=== PATIENT | female | born 1990 | race Caucasian/White ===

== ENCOUNTER 2016-11-16 06:10 | Emergency (ER) | payer OTHER ==
--- NOTE | 2016-11-16 06:49 | ED CLINICAL REPORT ---
Clinical Report - Physicians/Mid Levels [facility] [address] [place] [address] 11/16/2016 6:13 [id number] Time Seen: 06:34; initial patient contact. Arrived- By private vehicle. Historian- patient. HISTORY OF PRESENT ILLNESS Chief Complaint: Injury to the right wrist. The injury happened about 1 week ago. Occurred at home. (swinging a hammer. Did not strike the wrist.). Patient is experiencing moderate pain. Patient denies injury to the head or neck. REVIEW OF SYSTEMS No swelling, tingling, numbness, weakness or skin laceration. She has had joint pain. PAST HISTORY Abdominal Pain. Gastritis. Peptic Ulcer Disease. ADDITIONAL SURGERIES: Oophorectomy. Tonsillectomy. The patient's dominant hand is the left. SOCIAL HISTORY Never smoker. Occasional alcohol use. ADDITIONAL NOTES The nursing notes have been reviewed with agreement regarding the chief complaint, PMH and patient medications and allergies. PHYSICAL EXAM Vital Signs: 11/16/2016 06:16 BP: 134/80. HR: 106. RR: 16. O2 saturation: 96%. Temp: 99.1 F. Have been reviewed. Blood pressure normal. Tachycardic. Respiratory rate normal. Temperature normal. Oxygen saturation normal. Appearance: Alert. Oriented X3. No acute distress. Skin: Skin warm and dry. Skin intact. Extremities: Left wrist: moderate tenderness located in the ulnar aspect of the wrist. Limited ROM secondary to pain (diminished extension and radial deviation). Neurovascular intact distally. No erythema, swelling, laceration, ecchymosis or deformity. No decreased flexion. Extremities otherwise negative. Neuro, Vascular and Tendons: Vascular status intact. Sensation intact. Motor intact. Tendon function intact. Neuro: Oriented X 3. No motor deficit. No sensory deficit. PROGRESS AND PROCEDURES Disposition: Discharged home in good and improved condition. Condition: good. CLINICAL IMPRESSION Sprain of the right radiocarpal joint. INSTRUCTIONS Apply ice for 20 minutes followed by heat 20 minutes. Don't apply ice directly to skin. Wear cock-up splint until released. Limit use of your right hand until released. Do not work today. Your Current Medications: CONTINUE TAKING THE FOLLOWING MEDICATIONS: Zoloft*. Prescription Medications: Diclofenac 50 mg tablets: take 1 tablet orally every 6 hours as needed for pain or stiffness. Dispense thirty (30). No refill. Follow-up: Screening today revealed the patient's blood pressure to be in the pre-hypertensive range. Follow-up with: [facility], , [address], , [place], [id number] Follow up in about two days. Call for an appointment. (Electronically signed by Raymond Scott Dr. 11/16/2016 6:52)
--- NOTE | 2016-11-16 06:49 | ED CLINICAL REPORT ---
Clinical Report - Physicians/Mid Levels [facility] [address] [place] [address] 11/16/2016 6:13 [id number] Time Seen: 06:34; initial patient contact. Arrived- By private vehicle. Historian- patient. HISTORY OF PRESENT ILLNESS Chief Complaint: Injury to the right wrist. The injury happened about 1 week ago. Occurred at home. (swinging a hammer. Did not strike the wrist.). Patient is experiencing moderate pain. Patient denies injury to the head or neck. REVIEW OF SYSTEMS No swelling, tingling, numbness, weakness or skin laceration. She has had joint pain. PAST HISTORY Abdominal Pain. Gastritis. Peptic Ulcer Disease. ADDITIONAL SURGERIES: Oophorectomy. Tonsillectomy. The patient's dominant hand is the left. SOCIAL HISTORY Never smoker. Occasional alcohol use. ADDITIONAL NOTES The nursing notes have been reviewed with agreement regarding the chief complaint, PMH and patient medications and allergies. PHYSICAL EXAM Vital Signs: 11/16/2016 06:16 BP: 134/80. HR: 106. RR: 16. O2 saturation: 96%. Temp: 99.1 F. Have been reviewed. Blood pressure normal. Tachycardic. Respiratory rate normal. Temperature normal. Oxygen saturation normal. Appearance: Alert. Oriented X3. No acute distress. Skin: Skin warm and dry. Skin intact. Extremities: Left wrist: moderate tenderness located in the ulnar aspect of the wrist. Limited ROM secondary to pain (diminished extension and radial deviation). Neurovascular intact distally. No erythema, swelling, laceration, ecchymosis or deformity. No decreased flexion. Extremities otherwise negative. Neuro, Vascular and Tendons: Vascular status intact. Sensation intact. Motor intact. Tendon function intact. Neuro: Oriented X 3. No motor deficit. No sensory deficit. PROGRESS AND PROCEDURES Disposition: Discharged home in good and improved condition. Condition: good. CLINICAL IMPRESSION Sprain of the right radiocarpal joint. INSTRUCTIONS Apply ice for 20 minutes followed by heat 20 minutes. Don't apply ice directly to skin. Wear cock-up splint until released. Limit use of your right hand until released. Do not work today. Your Current Medications: CONTINUE TAKING THE FOLLOWING MEDICATIONS: Zoloft*. Prescription Medications: Diclofenac 50 mg tablets: take 1 tablet orally every 6 hours as needed for pain or stiffness. Dispense thirty (30). No refill. Follow-up: Screening today revealed the patient's blood pressure to be in the pre-hypertensive range. [facility] with: [facility], , [address], , [place], [id number] Follow up in about two days. Call for an appointment. (Electronically signed by Raymond Scott Dr. 11/16/2016 6:52)
--- NOTE | 2016-11-16 06:50 | ED ORDER SUMMARY ---
..... Patient: PETE MORRISON R OrderSheet [facility] VisitID: [id number] [address] [place] [address] 26y, F Registration Date/Time: 11/16/2016 ORDER SHEET Weight: 48.9 kg Allergies: Penicillins GENERAL ORDERS: Splint (UE) (Right) (Cock-up) (06:49 11/16/2016 Cheryl Gipson) (Ack 6:49 IJurca ER Tech1) (7:01 EIndtameka R.N.) Ice (06:57 11/16/2016 Moises R.Matt per protocol) (6:57 Moises R.N.) MEDICATION ORDERS: Toradol IM 60 mg (NOW) (06:43 11/16/2016 Cheryl Gipson) (6:47 Betsey R.N.) IV FLUIDS: ORDER SHEET NOTES: [Electronically signed by Raymond Scott Dr. (06:52 11/16/2016)] [Electronically signed by Katy López R.N. (07:03 11/16/2016)] [Electronically locked/signed by Katy López R.N. (07:03 11/16/2016)]
--- NOTE | 2016-11-16 06:50 | ED NURSING NOTES ---
Clinical Report - Nurses [facility] [address] [place] [address] 11/16/2016 6:13 [id number] TRI[facility] Triage time 06:Nov 16 2016. Acuity: LEVEL 4. Chief Complaint: SPORTS INJURY. 06:16 11/16/16. SEPSIS SCREEN: Sepsis Screen. Negative (no infection suspected/documented). ISABELA COMA SCORE: Isabela Coma Scale: 15- eyes open spontaneously (4); best verbal response- oriented x 4 (5); best motor response- obeys commands (6). --06:23 Katy óLpez R.N. 06:16 11/16/16. BP: 134/80. HR: 106. RR: 16. O2 saturation: 96%. Temp: 99.1 F. Pain level now 10. --06:23 Katy López R.N. Weight: 48.9 kg. Height/Length: 61 inches. BMI: 20.4. --06:15 Katy López R.N. Medications Zoloft. --06:19 Katy López R.N. Allergies Penicillins. --06:19 Katy López R.N. Medication/allergy information source: the patient. --06:23 Katy López R.N. History Arrived by private vehicle. Historian: patient. Unaccompanied. Location of injuries: right wrist. This occurred last night. ( sprained r wrist 1 month ago, reinjured it last night when she was hammering a nail while making furniture). 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 PAST MEDICAL HX: Last normal menstrual period was 3 weeks ago- weeks ago. SOCIAL HX: Never smoker. Occasional alcohol use. No drug use. No infectious disease exposure. ABUSE ASSESSMENT: No report of abuse. SELF HARM ASSESSMENT: A self harm assessment was performed. The patient answered "no" to the question "Have you recently felt down, depressed, or hopeless?", "Have you noticed less interest or pleasure in doing things?", "Do you have thoughts of harming or killing yourself?", "Are you here because you tried to hurt yourself?", "Have you ever tried to hurt yourself before today?", "Have you recently had thoughts about harming or killing others?" and "Do you have any dangerous items in your possession?". NUTRITIONAL RISK ASSESSMENT: The nutritional risk assessment revealed no deficiencies. FUNCTIONAL ASSESSMENT: Functional assessment: no impairments noted. LEARNING NEEDS ASSESSMENT: The learning needs assessment revealed no barriers. SKIN INTEGRITY ASSESSMENT: Skin integrity risk assessment completed. No skin integrity risk identified. --06:23 Katy López R.N. PROBLEMS: Abdominal Pain. Gastritis. Peptic Ulcer Disease. --06:20 Katy López R.N. ADDITIONAL SURGERIES: Oophorectomy. Tonsillectomy. --06:20 Katy López R.N. Interventions ID band on patient. --06:23 Katy López R.N. PHYSICAL ASSESSMENT 06:25 11/16/16. GENERAL / NEURO / PSYCH: Alert. Oriented X 4. HEENT: Pupils equal, round and reactive to light. RESPIRATORY: Respirations not labored. Breath sounds within normal limits. EXTREMITIES: Right forearm: tenderness of the distal ulnar aspect of forearm. Right wrist: tenderness located in the dorsal aspect of the wrist. Limited ROM secondary to pain (diminished extension). SKIN: Skin is warm and dry. --06:25 Katy López R.N. NURSING PROGRESS NOTES 06:25 11/16/16. Cold pack applied. Two patient identifiers checked. Call light placed in reach. Side rails up x 1. Bed placed in lowest position. Brakes of bed on. Patient ready for evaluation. --06:25 Katy López R.N. 06:45 11/16/2016 Toradol (Ketorolac Tromethamine) IM 60 mg given. Given in the left gluteus niharika. Allergies verified and confirmed 5 rights. --06:47 Katy López R.N. 06:30. Cold pack applied to the right wrist. --06:58 Veto Maynard R.N. 07:00 11/16/16. 2 inch evangelista bandage applied to right wrist by nurse; distal pulses intact, sensation intact and motor function within normal limits. ( Evangelista wrap utilitzed as smallest velcro wrist splint too large. MD informed). --07:01 Katy López R.N. DISPOSITION / DISCHARGE 07:03 11/16/16. Departure time: 07:Nov 16 2016. Condition at departure: improved and stable. The goals identified in the patient's plan of care were met. No learning barriers present. Reviewed medication(s) side effects, precautions, dosing and course information. Prescription(s) given to the patient. Patient verbalized understanding. Written instructions provided in Eritrean. The patient was discharged home and unaccompanied at time of discharge. She left the Emergency Department ambulatory and via private vehicle. Patient driving. --07:03 Katy López R.N. 06:16 11/16/16. BP: 134/80. HR: 106. RR: 16. O2 saturation: 96%. Temp: 99.1 F. Pain level now 10. --07:03 Katy López R.N. Locked/Released at 11/16/2016 7:03 by Katy López R.N.
--- NOTE | 2016-11-16 06:50 | ED NURSING NOTES ---
Clinical Report - Nurses [facility] [address] [place] [address] 11/16/2016 6:13 [id number] TRI[facility] Triage time 06:Nov 16 2016. Acuity: LEVEL 4. Chief Complaint: SPORTS INJURY. 06:16 11/16/16. SEPSIS SCREEN: Sepsis Screen. Negative (no infection suspected/documented). ISABELA COMA SCORE: Isabela Coma Scale: 15- eyes open spontaneously (4); best verbal response- oriented x 4 (5); best motor response- obeys commands (6). --06:23 Katy López R.N. 06:16 11/16/16. BP: 134/80. HR: 106. RR: 16. O2 saturation: 96%. Temp: 99.1 F. Pain level now 10. --06:23 Katy López R.N. Weight: 48.9 kg. Height/Length: 61 inches. BMI: 20.4. --06:15 Katy López R.N. Medications Zoloft. --06:19 Katy López R.N. Allergies Penicillins. --06:19 Katy López R.N. Medication/allergy information source: the patient. --06:23 Katy López R.N. History Arrived by private vehicle. Historian: patient. Unaccompanied. Location of injuries: right wrist. This occurred last night. ( sprained r wrist 1 month ago, reinjured it last night when she was hammering a nail while making furniture). 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 PAST MEDICAL HX: Last normal menstrual period was 3 weeks ago- weeks ago. SOCIAL HX: Never smoker. Occasional alcohol use. No drug use. No infectious disease exposure. ABUSE ASSESSMENT: No report of abuse. SELF HARM ASSESSMENT: A self harm assessment was performed. The patient answered "no" to the question "Have you recently felt down, depressed, or hopeless?", "Have you noticed less interest or pleasure in doing things?", "Do you have thoughts of harming or killing yourself?", "Are you here because you tried to hurt yourself?", "Have you ever tried to hurt yourself before today?", "Have you recently had thoughts about harming or killing others?" and "Do you have any dangerous items in your possession?". NUTRITIONAL RISK ASSESSMENT: The nutritional risk assessment revealed no deficiencies. FUNCTIONAL ASSESSMENT: Functional assessment: no impairments noted. LEARNING NEEDS ASSESSMENT: The learning needs assessment revealed no barriers. SKIN INTEGRITY ASSESSMENT: Skin integrity risk assessment completed. No skin integrity risk identified. --06:23 Katy López R.N. PROBLEMS: Abdominal Pain. Gastritis. Peptic Ulcer Disease. --06:20 Katy López R.N. ADDITIONAL SURGERIES: Oophorectomy. Tonsillectomy. --06:20 Katy López R.N. Interventions ID band on patient. --06:23 Katy López R.N. PHYSICAL ASSESSMENT 06:25 11/16/16. GENERAL / NEURO / PSYCH: Alert. Oriented X 4. HEENT: Pupils equal, round and reactive to light. RESPIRATORY: Respirations not labored. Breath sounds within normal limits. EXTREMITIES: Right forearm: tenderness of the distal ulnar aspect of forearm. Right wrist: tenderness located in the dorsal aspect of the wrist. Limited ROM secondary to pain (diminished extension). SKIN: Skin is warm and dry. --06:25 Katy López R.N. NURSING PROGRESS NOTES 06:25 11/16/16. Cold pack applied. Two patient identifiers checked. Call light placed in reach. Side rails up x 1. Bed placed in lowest position. Brakes of bed on. Patient ready for evaluation. --06:25 Katy López R.N. 06:45 11/16/2016 Toradol (Ketorolac Tromethamine) IM 60 mg given. Given in the left gluteus niharika. Allergies verified and confirmed 5 rights. --06:47 Katy óLpez R.N. 06:30. Cold pack applied to the right wrist. --06:58 Veto Maynard R.N. 07:00 11/16/16. 2 inch evangelista bandage applied to right wrist by nurse; distal pulses intact, sensation intact and motor function within normal limits. ( Evangelista wrap utilitzed as smallest velcro wrist splint too large. MD informed). --07:01 Katy López R.N. DISPOSITION / DISCHARGE 07:03 11/16/16. Departure time: 07:Nov 16 2016. Condition at departure: improved and stable. The goals identified in the patient's plan of care were met. No learning barriers present. Reviewed medication(s) side effects, precautions, dosing and course information. Prescription(s) given to the patient. Patient verbalized understanding. Written instructions provided in Guyanese. The patient was discharged home and unaccompanied at time of discharge. She left the Emergency Department ambulatory and via private vehicle. Patient driving. --07:03 Katy López R.N. 06:16 11/16/16. BP: 134/80. HR: 106. RR: 16. O2 saturation: 96%. Temp: 99.1 F. Pain level now 10. --07:03 Katy López R.N. Locked/Released at 11/16/2016 7:03 by Katy López R.N.
--- NOTE | 2016-11-16 06:50 | ED ORDER SUMMARY ---
..... Patient: PETE MORRISON R OrderSheet [facility] VisitID: [id number] [address] [place] [address] 26y, F Registration Date/Time: 11/16/2016 ORDER SHEET Weight: 48.9 kg Allergies: Penicillins GENERAL ORDERS: Splint (UE) (Right) (Cock-up) (06:49 11/16/2016 Cheryl Gipson) (Ack 6:49 IJurca ER Tech1) (7:01 EIndtameka R.N.) Ice (06:57 11/16/2016 Moises R.Matt per protocol) (6:57 Moises R.N.) MEDICATION ORDERS: Toradol IM 60 mg (NOW) (06:43 11/16/2016 Cheryl Gipson) (6:47 Betsey R.N.) IV FLUIDS: ORDER SHEET NOTES: [Electronically signed by Raymond Scott Dr. (06:52 11/16/2016)] [Electronically signed by Katy López R.N. (07:03 11/16/2016)] [Electronically locked/signed by Katy López R.N. (07:03 11/16/2016)]
--- NOTE | 2016-11-16 07:03 | ED DISCHARGE INSTRUCTIONS ---
Patient: PETE MORRISON General Instructions [facility] VisitID: [id number] [address] [place] [place] [address] 26y, F Registration Date/Time: 11/16/2016 Sprain of the right radiocarpal joint. INSTRUCTIONS Apply ice for 20 minutes followed by heat 20 minutes. Don't apply ice directly to skin. Wear cock-up splint until released. Limit use of your right hand until released. Do not work today. Your Current Medications: CONTINUE TAKING THE FOLLOWING MEDICATIONS: Zoloft*. Prescription Medications: Diclofenac 50 mg tablets: take 1 tablet orally every 6 hours as needed for pain or stiffness. Dispense thirty (30). No refill. Follow-up: Screening today revealed the patient's blood pressure to be in the pre-hypertensive range. Follow[facility] with: [facility], , [address], [place], [phone] Follow up in about two days. Call for an appointment. ADDITIONAL INFORMATION Sprain, Wrist A sprain is an injury to the ligaments or capsule that holds a joint together. There are no broken bones. Most sprains take about three to six weeks to heal. If the ligament is completely torn (severe sprain), it can take months to recover. Most wrist sprains are treated with a splint, wrist brace or elastic wrap for support. Severe sprains may require surgery. Home care The following guidelines will help you care for your injury at home: 1) Keep your arm elevated to reduce pain and swelling. This is very important during the first 48 hours. 2) Apply an ice pack (ice cubes in a plastic bag, wrapped in a towel) over the injured area for 20 minutes every 12 hours the first day. Continue with ice packs 34 times a day for the next two days, then as needed for the relief of pain and swelling. 3) You may use acetaminophen or ibuprofen to control pain, unless another pain medicine was prescribed.If you have chronic liver or kidney disease or ever had a stomach ulcer or GI bleeding, talk with your doctor before using these medicines. 4) If you were given a splint or brace, wear it for the time advised by your doctor. Follow-up care Follow up with your doctor as advised. Any X-rays you had today dont show any broken bones, breaks, or fractures. Sometimes fractures dont show up on the first X-ray. Bruises and sprains can sometimes hurt as much as a fracture. These injuries can take time to heal completely. If your symptoms dont improve or they get worse, talk with your doctor. You may need a repeat X-ray. When to seek medical care Get prompt medical attention if any of the following occur: Pain or swelling increases Fingers or hand becomes cold, blue, numb, or tingly Wrist Splint: Velcro A splint is designed to prevent movement of the bones, muscles and tendons of the wrist. Velcro wrist splints are used because of their comfort and convenience. In certain conditions, the splint can be removed when bathing or changing clothes. The condition you are being treated for will determine how long you should wear the splint and if it is safe to remove your splint before your next visit. If you are unsure, ask your nurse or doctor. Get Prompt Medical Attention if any of the following occur: -- Increased pain or swelling under the splint or in the hand or fingers -- Fingers or hand becomes cold, blue, numb or tingly You have been given the following additional information: Wrist Sprain Wrist Splint, Velcro Limit use of your right hand until released. Do not work today. (Electronically signed by Raymond Scott Dr. 11/16/2016 6:52)
--- NOTE | 2016-11-16 07:03 | ED MED RECONCILIATION SUMMARY ---
Patient: PETE MORRISON Medication Reconciliation Report [facility] VisitID: [id number] [address] [place] [address] 26y, F Registration Date/Time: 11/16/2016 Weight: 48.9 kg Height/Length: 61 in. BMI: 20.4 ALLERGIES: Penicillins The patient's Home Medications are listed below: CONTINUE TAKING THE FOLLOWING MEDICATIONS: Zoloft The source(s) of the original Home Medication information: patient The following Medications were given to the patient in the Emergency Department: Toradol [IM] IM 60 mg, administered: 11/16/2016 6:45:00 AM The following Medications were prescribed to the patient: Diclofenac 50 mg tablets: take 1 tablet orally every 6 hours as needed for pain or stiffness. Dispense thirty (30). No refill. -- Raymond Scott Dr.
--- NOTE | 2016-11-16 07:03 | ED DISCHARGE INSTRUCTIONS ---
Patient: PETE MORRISON General Instructions [facility] VisitID: [id number] [address] [place] [place] [address] 26y, F Registration Date/Time: 11/16/2016 Sprain of the right radiocarpal joint. INSTRUCTIONS Apply ice for 20 minutes followed by heat 20 minutes. Don't apply ice directly to skin. Wear cock-up splint until released. Limit use of your right hand until released. Do not work today. Your Current Medications: CONTINUE TAKING THE FOLLOWING MEDICATIONS: Zoloft*. Prescription Medications: Diclofenac 50 mg tablets: take 1 tablet orally every 6 hours as needed for pain or stiffness. Dispense thirty (30). No refill. Follow-up: Screening today revealed the patient's blood pressure to be in the pre-hypertensive range. Follow-up with: [facility], , [address], [place], [address] Follow up in about two days. Call for an appointment. ADDITIONAL INFORMATION Sprain, Wrist A sprain is an injury to the ligaments or capsule that holds a joint together. There are no broken bones. Most sprains take about three to six weeks to heal. If the ligament is completely torn (severe sprain), it can take months to recover. Most wrist sprains are treated with a splint, wrist brace or elastic wrap for support. Severe sprains may require surgery. Home care The following guidelines will help you care for your injury at home: 1) Keep your arm elevated to reduce pain and swelling. This is very important during the first 48 hours. 2) Apply an ice pack (ice cubes in a plastic bag, wrapped in a towel) over the injured area for 20 minutes every 12 hours the first day. Continue with ice packs 34 times a day for the next two days, then as needed for the relief of pain and swelling. 3) You may use acetaminophen or ibuprofen to control pain, unless another pain medicine was prescribed.If you have chronic liver or kidney disease or ever had a stomach ulcer or GI bleeding, talk with your doctor before using these medicines. 4) If you were given a splint or brace, wear it for the time advised by your doctor. Follow-up care Follow up with your doctor as advised. Any X-rays you had today dont show any broken bones, breaks, or fractures. Sometimes fractures dont show up on the first X-ray. Bruises and sprains can sometimes hurt as much as a fracture. These injuries can take time to heal completely. If your symptoms dont improve or they get worse, talk with your doctor. You may need a repeat X-ray. When to seek medical care Get prompt medical attention if any of the following occur: Pain or swelling increases Fingers or hand becomes cold, blue, numb, or tingly Wrist Splint: Velcro A splint is designed to prevent movement of the bones, muscles and tendons of the wrist. Velcro wrist splints are used because of their comfort and convenience. In certain conditions, the splint can be removed when bathing or changing clothes. The condition you are being treated for will determine how long you should wear the splint and if it is safe to remove your splint before your next visit. If you are unsure, ask your nurse or doctor. Get Prompt Medical Attention if any of the following occur: -- Increased pain or swelling under the splint or in the hand or fingers -- Fingers or hand becomes cold, blue, numb or tingly You have been given the following additional information: Wrist Sprain Wrist Splint, Velcro Limit use of your right hand until released. Do not work today. (Electronically signed by Raymond Scott Dr. 11/16/2016 6:52)
--- NOTE | 2016-11-16 07:03 | ED MED RECONCILIATION SUMMARY ---
Patient: PETE MORRISON Medication Reconciliation Report [facility] VisitID: [id number] [address] [place] [address] 26y, F Registration Date/Time: 11/16/2016 Weight: 48.9 kg Height/Length: 61 in. BMI: 20.4 ALLERGIES: Penicillins The patient's Home Medications are listed below: CONTINUE TAKING THE FOLLOWING MEDICATIONS: Zoloft The source(s) of the original Home Medication information: patient The following Medications were given to the patient in the Emergency Department: Toradol [IM] IM 60 mg, administered: 11/16/2016 6:45:00 AM The following Medications were prescribed to the patient: Diclofenac 50 mg tablets: take 1 tablet orally every 6 hours as needed for pain or stiffness. Dispense thirty (30). No refill. -- Raymond Scott Dr.
--- NOTE | 2016-11-16 07:03 | ED MAR SUMMARY ---
..... Medication Administration Record [facility] [address] [place] [address] Patient: PETE MORRISON Visit ID: [id number] 26y, F Weight: 48.9 kg Height/Length: 61 in BMI: 20.4 ALLERGIES: Penicillins Given 06:45 11/16/2016 Katy López R.N. Medication Administered: TORADOL [IM] (KETOROLAC TROMETHAMINE), Dose: 60 mg IM. Medication Ordered: Toradol IM 60 mg (NOW).
--- NOTE | 2016-11-16 07:03 | ED MAR SUMMARY ---
..... Medication Administration Record [facility] [address] [place] [address] Patient: PETE MORRISON Visit ID: [id number] 26y, F Weight: 48.9 kg Height/Length: 61 in BMI: 20.4 ALLERGIES: Penicillins Given 06:45 11/16/2016 Katy López R.N. Medication Administered: TORADOL [IM] (KETOROLAC TROMETHAMINE), Dose: 60 mg IM. Medication Ordered: Toradol IM 60 mg (NOW).
== END 2016-11-16 07:03 | disposition home or self-care (01) ==
LOC: ED SRH 06:10
DX: S63.521A Sprain of radiocarpal joint of right wrist, initial encounter (principal); X50.3XXA Overexertion from repetitive movements, initial encounter; Y93.89 Activity, other specified; Y92.009 Unspecified place in unspecified non-institutional (private) residence as the place of occurrence of the external cause; Y99.9 Unspecified external cause status